=== PATIENT | male | born 1955 | race Caucasian/White ===

== ENCOUNTER 2016-09-07 17:19 | Inpatient (IN) | payer BC, OTHER ==
[~2016-09-07] VITALS: Ht 177.8 cm; Wt 104.4 kg
--- NOTE | 2016-09-07 19:03 | RADRPT ---
PROCEDURE: CT Brain without. CLINICAL INDICATION: Pain, concern for bleed. TECHNIQUE: A CT of the brain was performed on multidetector high-resolution CT scanner utilizing a xial sections from the skull base through the vertex without contrast. The scan was reviewed in sof t tissue brain and high frequency resolution bone algorithm windows. Images were reviewed on a high -resolution PACS workstation. One or more the following does reduction techniques were utilized: Aut omated exposure control, adjustment of the mA/ or kV according to patient's size, or use of iterativ e reconstruction technique. The exam CTDI = 44.27 mGy and the DLP = 720.23 mGy-cm. COMPARISON: None available. FINDINGS: The ventricles and sulci are mildly prominent indicative of volume loss. There is no intracranial h emorrhage, mass effect or midline shift. No abnormal intra-axial or extra-axial fluid collections a re seen. The awad/white matter differentiation is preserved. There are minimal scattered foci of hypoattenuation in the white matter, which are nonspecific in et iology but likely reflect chronic small vessel ischemic changes. There are minimal intracranial vas cular calcifications consistent with atherosclerosis. The visualized paranasal sinuses are essential ly clear. IMPRESSION: 1. No acute intracranial hemorrhage, transcortical infarction or mass effect. 2. Minimal intracranial atherosclerosis and chronic small vessel ischemic changes. 3. Mild generalized cerebral volume loss. RPTAT: HH .Josh Merritt MD, MD Date Time Electronically viewed and signed by .Josh Merritt MD, MD on 09/07/2016 19:03 .N/
--- NOTE | 2016-09-07 19:05 | RADRPT ---
PROCEDURE: XR Chest. CLINICAL INDICATION: Abdominal pain. TECHNIQUE: Single frontal chest x-ray. COMPARISON: None available. FINDINGS: The cardiomediastinal silhouette is unremarkable. No pneumothorax, pleural effusion or consolidation is seen. No acute osseous abnormality is noted. IMPRESSION: 1. No acute cardiopulmonary abnormality. RPTAT: HH .Josh Merritt MD, MD Date Time Electronically viewed and signed by .Josh Merritt MD, on 09/07/2016 19:04 .N/
[2016-09-07 19:16] LABS: ADD SCAN DIFF NO
[2016-09-07 19:18] LABS: BASOPHIL # 0.1 10^3/ul (0.0-0.1); BASOPHILS % 0.6 % (0.0-2.0); EOSINOPHILS # 0.1 10^3/ul (0.0-0.5); EOSINOPHILS % 1.3 % (0.0-7.0); HEMATOCRIT 50.1 % (42.0-52.0); HEMOGLOBIN 17.5 g/dl (14.0-18.0); LYMPHOCYTES % 26.4 % (15.0-51.0); MEAN CORPUSCULAR HEMOGLOBIN 29.6 pg (29.0-33.0); MEAN CORPUSCULAR HGB CONC 34.9 g/dl (32.0-37.0); MEAN CORPUSCULAR VOLUME 84.6 fl (82.0-101.0); MEAN PLATELET VOLUME 9.5 fl (7.4-10.4); MONOCYTE # 0.6 10^3/ul (0.3-0.9); MONOCYTES % 5.3 % (0.0-11.0); NEUTROPHIL # 7.4 10^3/ul (1.6-7.5); NEUTROPHILS % 65.9 % (39.0-77.0); PLATELET COUNT 296 10^3/UL (140-415); RED BLOOD COUNT 5.92 10^6/ul (4.70-6.10); RED CELL DISTRIBUTION WIDTH 12.1 % (11.5-14.5); WHITE BLOOD COUNT 11.2 10^3/ul (4.8-10.8)
[2016-09-07 19:19] LABS: ADD UMIC YES; URINE BILIRUBIN (Dip) NEGATIVE (NEGATIVE); URINE BLOOD (Dip) 2+ (NEGATIVE); URINE COLOR LT. YELLOW (YELLOW); URINE GLUCOSE (Dip) >=1000 % (NEGATIVE); URINE KETONES (Dip) NEGATIVE (NEGATIVE); URINE LEUKOCYTE ESTERASE (Dip) NEGATIVE (NEGATIVE); URINE NITRITE (Dip) NEGATIVE (NEGATIVE); URINE TOTAL PROTEIN (Dip) NEGATIVE (NEGATIVE); URINE UROBILINOGEN (Dip) 0.2 E.U./dL (0.1-1.0)
[2016-09-07 19:26] LABS: ALBUMIN 4.8 g/dl (3.3-4.9); CHLORIDE 100 mmol/L (97-110); INR 0.98; SODIUM 140 mmol/L (135-144)
[2016-09-07 19:27] LABS: POTASSIUM 4.4 mmol/L (3.5-5.1)
[2016-09-07 19:28] LABS: CREATININE 0.77 mg/dl (0.61-1.24)
[2016-09-07 19:29] LABS: ALANINE AMINOTRANSFERASE 30 IU/L (13-69); ALKALINE PHOSPHATASE 98 IU/L (42-121); ANION GAP 18 (8-16); ASPARTATE AMINO TRANSFERASE 23 IU/L (15-46); BILIRUBIN,INDIRECT 0.4 mg/dl (0-1.1); BILIRUBIN,TOTAL 0.4 mg/dl (0.2-1.3); BLOOD UREA NITROGEN 16 mg/dl (7-20); CALCIUM 10.3 mg/dl (8.4-10.2); CARBON DIOXIDE 26 mmol/L (21-31); GLUCOSE 242 mg/dl (70-220)
[2016-09-07 19:32] LABS: BACTERIA,URINE FEW
[2016-09-07 19:45] LABS: TROPONIN-I < 0.012 ng/ml (0.00-0.12)
[2016-09-07] MEDS ORDERED: IOHEXOL 100 ML ONE (20:04)
[2016-09-07] MEDS ORDERED: SOD CHLORIDE 0.9% 100 ML ONE (20:04)
--- NOTE | 2016-09-07 20:34 | RADRPT ---
PROCEDURE: CTA Neck. CLINICAL INDICATION: aneurysm, dissection, neurologic deficit TECHNIQUE: The study was performed utilizing a multidetector CT scanner. Thin cut axial sections w ere obtained through the neck with the use of 100 cc of Isovue 370 nonionic intravenous contrast mat erial. Coronal and sagittal maximal intensity projection reformations were obtained. Additional 3D volumetric renderings were created. The images were reviewed on a PACS workstation. The total CTDI vol is 21/23 mGy and the DLP is 795 mGy-cm. One or more of the following dose reduction techniques w ere used: Automated exposure control, Adjustment of the mA and/or kV according to patient size, and/ or use of iterative reconstruction technique. COMPARISON: No prior studies are available for comparison. FINDINGS: Narrowest luminal diameter of the right proximal internal carotid artery just beyond the carotid bul b measures 2.7 mm with distal luminal diameter measuring 3.5 mm. This is compatible with the 23% st enosis by NASCET criteria. No significant stenosis or vessel dissection of the bilateral common obrien tid, left cervical internal carotid or bilateral vertebral arteries. 15 mm nodule in the right trach eoesophageal groove at the level of the thoracic inlet. Reversal of the cervical lordosis with degen erative changes of the cervical spine. IMPRESSION: No evidence of carotid or vertebral arterial aneurysm or dissection. Mild stenosis of the proximal right internal carotid artery by NASCET criteria. 15 mm nodule in the right tracheoesophageal groove at the level of the thoracic inlet could represen t a lymph node or parathyroid adenoma. NASCET CAROTID STENOSIS CRITERIA (distal normal appearing ICA as denominator for measurement): 0%-no ne, 1-49%-mild, 50-70%-moderate, 70-89%-severe, 90-99%-critical. . RPTAT: AA .Saúl Martinez MD, Date Time Electronically viewed and signed by .Saúl Martinez MD, MD on 09/07/2016 20:34 .T/
--- NOTE | 2016-09-07 21:08 | ERA ---
ER Documentation Chief Complaint Date/Time DATE: 09/07/16 TIME: 21:00 Chief Complaint double vision , rt side facial and rt hand numbness since HPI 60-year-old man presents with 4 days of double vision and paresthesias to the right side of the face and right hand although he denies weakness or headache. Patient denies anxiety or previous similar symptoms. He has had no chest pain or shortness of breath, no fevers or chills, no head trauma, no vomiting or diarrhea. Patient denies significant past medical history. He was referred here by his PMD for further evaluation and admission. ROS All systems reviewed and are negative except as per history of present illness. Medications Home Meds No Active Prescriptions or Reported Meds Allergies Allergies: Coded Allergies: No Known Allergy (Unverified , 09/07/16) PMhx/Soc None Medical and Surgical Hx: pt denies Medical Hx, pt denies Surgical Hx History of Surgery: Yes (ADENOIDECTOMY) Anesthesia Reaction: No Hx Neurological Disorder: No Hx Respiratory Disorders: No Hx Cardiac Disorders: No Hx Psychiatric Problems: No Hx Miscellaneous Medical Probl: No Hx Alcohol Use: No Hx Substance Use: No Hx Tobacco Use: No Smoking Status: Never smoker FmHx Family History: No diabetes Physical Exam Vitals Vital Signs Date Time Temp Pulse Resp B/P Pulse Ox O2 Delivery O2 Flow Rate FiO2 09/07/16 20:10 93 17 146/95 96 Room Air 09/07/16 17:37 98.1 88 16 159/85 99 Physical Exam GENERAL: Well-developed, well-nourished, well-hydrated, in no apparent distress , looks nontoxic in appearance HEENT: Moist mucous membranes, pink conjunctiva, no cervical spine tenderness or step-off deformities, no goiter, no jaundice or icterus, extraocular movements intact without pain. No submandibular induration, and no pharyngeal erythema NEURO: Alert and oriented 3, cranial nerves II through XII intact bilaterally, patient has a left ptosis, strength is 5 out of 5 bilaterally in upper lower extremities, no pronator drift, no gait ataxia, sensation equal and bilateral distally CARDIAC: Regular rate and rhythm, no murmurs rubs or gallops LUNGS: Clear bilaterally no wheezing crackles or stridor ABDOMEN: Soft nontender, no guarding, no rigidity, no rebound, no psoas sign no obturator sign. Normoactive bowel sounds SKIN: Warm and dry to touch, no abrasions, contusions, or hematomas, no lacerations, no ecchymosis, no target lesions, and without ulcers EXTREMITIES: No clubbing cyanosis or edema, calves are bilaterally symmetrical, no Homans sign, no popliteal cord sign. Distal pulses equal and bilateral PSYCH: Normal affect without agitation or irritability Result Diagram: 09/07/16189909/07/161899 Results 24 hrs Laboratory Tests Test 09/07/16 19:00 White Blood Count 11.210^3/ul Red Blood Count 5.9210^6/ul Hemoglobin 17.5g/dl Hematocrit 50.1% Mean Corpuscular Volume 84.6fl Mean Corpuscular Hemoglobin 29.6pg Mean Corpuscular Hemoglobin Concent 34.9g/dl Red Cell Distribution Width 12.1% Platelet Count 54861^3/UL Mean Platelet Volume 9.5fl Neutrophils % 65.9% Lymphocytes % 26.4% Monocytes % 5.3% Eosinophils % 1.3% Basophils % 0.6% Nucleated Red Blood Cells % 0.0/100WBC Neutrophils # 7.410^3/ul Lymphocytes # 3.010^3/ul Monocytes # 0.610^3/ul Eosinophils # 0.110^3/ul Basophils # 0.110^3/ul Nucleated Red Blood Cells # 0.010^3/ul Prothrombin Time 13.0Sec Prothrombin Time Ratio 1.0 INR International Normalized Ratio 0.98 Urine Color LT. YELLOW Urine Clarity CLEAR Urine pH 5.5 Urine Specific [place] 1.020 Urine Ketones NEGATIVE Urine Nitrite NEGATIVE Urine Bilirubin NEGATIVE Urine Urobilinogen 0.2 E.U./dL Urine Leukocyte Esterase NEGATIVE Urine Microscopic RBC 10-25/HPF Urine Microscopic WBC 0-2/HPF Urine Epithelial Cells OCCASIONAL Urine Bacteria FEW Urine Hemoglobin 2+ Urine Glucose >=1000% Urine Total Protein NEGATIVE Sodium Level 140mmol/L Potassium Level 4.4mmol/L Chloride Level 100mmol/L Carbon Dioxide Level 26mmol/L Anion Gap 18 Blood Urea Nitrogen 16mg/dl Creatinine 0.77mg/dl Glucose Level 242mg/dl Calcium Level 10.3mg/dl Total Bilirubin 0.4mg/dl Direct Bilirubin 0.00mg/dl Indirect Bilirubin 0.4mg/dl Aspartate Amino Transf (AST/SGOT) 23IU/L Alanine Aminotransferase (ALT/SGPT) 30IU/L Alkaline Phosphatase 98IU/L Troponin I < 0.012ng/ml Total Protein 8.0g/dl Albumin 4.8g/dl Globulin 3.20g/dl Albumin/Globulin Ratio 1.50 Lipase 106U/L Current Medications Medications (Trade) Dose Ordered Sig/[place] Route PRN Reason Start Time Stop Time Status Last Admin Dose Admin IV Flush 10 ml 10 ml STK-MED ONCE .ROUTE 09/07/16 20:04 09/07/16 20:05 DC Sodium Chloride 100 ml @ ud STK-MED ONCE .ROUTE 09/07/16 20:04 09/07/16 20:05 DC Iohexol (Omnipaque) 100 ml @ ud STK-MED ONCE .ROUTE 09/07/16 20:04 09/07/16 20:05 DC Procedures/MDM IV line was established patient was placed on clinical research monitor rhythm strip revealed a sinus rhythm at about 90 bpm with upright P and T waves. Patient was afebrile. Chest X-ray 1V Interpreted by me: Soft Tissue: No acute abnormalities Bones: No acute abnormalities Mediastinum/Cardiac Silhouette/Lungs: No acute abnormalities CT scan of the brain was performed that was negative for acute bleed mass or shift. Please refer to radiologist dictation for full report. Patient initially received 1 L normal saline intravenously. Neurologic exam was fairly unremarkable although patient does have a left ptosis which is fairly obvious and he states that this is new for him. Given this finding carotid artery dissection versus aneurysm is a possibility so CTA of the neck has been performed there is no acute carotid artery injury. Please refer to radiologist dictation for full report. Patient also received a second liter of normal saline intravenously and aspirin 324 mg p.o. for neuro protective measures. CBC was unremarkable, electrolytes normal, liver function tests normal, troponin negative. EKG performed, read by me: 99 bpm, normal sinus rhythm, normal axis, no acute ST segment changes, narrow QRS complex, with good R-wave progression in precordial leads. Urine analysis was unremarkable. Patient admitted to telemetry setting, I did speak to Dr. Starks who is covering for Dr. Massey, although she stated he would be an later this evening to round on the patient. Departure Diagnosis: Primary Impression: Double vision Additional Impressions: Ptosis Qualified Code: H02.402 - Ptosis, left Paresthesias Condition: JOHANNA Alexander MD Sep 07, 2016 21:08
[2016-09-07] MEDS ORDERED: ASPIRIN 81 MG TAB PO ONE (21:30)
[2016-09-07] MEDS ORDERED: SOD CHLORIDE 0.9% 1,000 ML IV ONE (21:30)
[2016-09-08] VITALS (7 sets, daily range): BP systolic 129–159; BP diastolic 83–89; PULSE 82–89; RESP 18–20; Ht 177.8 cm; Wt 104.4 kg
[2016-09-08] MEDS ORDERED: ACETAMINOPHEN 325 MG TAB PO PRN (13:30)
[2016-09-08] MEDS ORDERED: ZOLPIDEM 5 MG TAB PO PRN (13:30)
[2016-09-08] MEDS ORDERED: MAGNESIUM HYDROXIDE 30ML CUP PO PRN (13:30)
--- NOTE | 2016-09-08 15:17 | RADRPT ---
PROCEDURE: XR Chest. CLINICAL INDICATION: Shortness of breath. TECHNIQUE: Single frontal view. COMPARISON: 09/07/2016. FINDINGS: The lungs are clear. The heart size is normal. There is no pleural effusion. There is no pneumothorax. IMPRESSION: 1. Normal chest radiograph. 2. No change from 09/07/2016. RPTAT: QQ .Roldan Cardenas MD, MD Date Time Electronically viewed and signed by .Roldan Cardenas MD, MD on 09/08/2016 15:17 .R/
[2016-09-08 16:20] LABS: ADD SCAN DIFF NO
[2016-09-08 16:27] LABS: BASOPHIL # 0.1 10^3/ul (0.0-0.1); BASOPHILS % 0.5 % (0.0-2.0); EOSINOPHILS # 0.2 10^3/ul (0.0-0.5); EOSINOPHILS % 1.6 % (0.0-7.0); HEMATOCRIT 47.4 % (42.0-52.0); HEMOGLOBIN 16.9 g/dl (14.0-18.0); LYMPHOCYTES # 2.4 10^3/ul (0.8-2.9); LYMPHOCYTES % 24.4 % (15.0-51.0); MEAN CORPUSCULAR HEMOGLOBIN 29.8 pg (29.0-33.0); MEAN CORPUSCULAR HGB CONC 35.7 g/dl (32.0-37.0); MEAN CORPUSCULAR VOLUME 83.6 fl (82.0-101.0); MEAN PLATELET VOLUME 9.7 fl (7.4-10.4); MONOCYTE # 0.6 10^3/ul (0.3-0.9); MONOCYTES % 5.6 % (0.0-11.0); NEUTROPHIL # 6.7 10^3/ul (1.6-7.5); NEUTROPHILS % 67.4 % (39.0-77.0); PLATELET COUNT 261 10^3/UL (140-415); RED BLOOD COUNT 5.67 10^6/ul (4.70-6.10); RED CELL DISTRIBUTION WIDTH 11.9 % (11.5-14.5)
[2016-09-08 16:40] LABS: POTASSIUM 4.1 mmol/L (3.5-5.1)
[2016-09-08 16:42] LABS: ALBUMIN/GLOBULIN RATIO 1.53; BILIRUBIN,INDIRECT 0.5 mg/dl (0-1.1); BILIRUBIN,TOTAL 0.5 mg/dl (0.2-1.3); CREATININE 0.63 mg/dl (0.61-1.24); TOTAL PROTEIN 6.6 g/dl (6.1-8.1)
[2016-09-08 16:43] LABS: CALCIUM 9.7 mg/dl (8.4-10.2)
[2016-09-08 16:44] LABS: CHOL/HDL RATIO 5.8 RATIO
[2016-09-08 17:14] LABS: PROSTATE SPECIFIC ANTIGEN 0.4 ng/ml (0.0-4.0); THYROID STIMULATING HORMONE 3.08 MIU/L (0.465-4.680)
[2016-09-08 17:34] LABS: ADD UMIC YES; URINE BILIRUBIN (Dip) NEGATIVE (NEGATIVE); URINE BLOOD (Dip) TRACE (NEGATIVE); URINE COLOR LT. YELLOW (YELLOW); URINE KETONES (Dip) TRACE (NEGATIVE); URINE LEUKOCYTE ESTERASE (Dip) NEGATIVE (NEGATIVE); URINE NITRITE (Dip) NEGATIVE (NEGATIVE); URINE TOTAL PROTEIN (Dip) NEGATIVE (NEGATIVE); URINE UROBILINOGEN (Dip) 0.2 E.U./dL (0.1-1.0)
[2016-09-08 17:43] LABS: SQUAMOUS EPITHELIAL CELL,UR RARE
--- NOTE | 2016-09-08 17:57 | RADRPT ---
PROCEDURE: US carotid arteries. CLINICAL INDICATION: Dizziness. Diplopia. TECHNIQUE: Multiple sonographic images of the carotid arteries and vertebral arteries were obtaine d utilizing awad scale, duplex, and color-flow imaging. The images were reviewed on a PACS workstati on. COMPARISON: No prior studies are available for comparison. FINDINGS: Evaluation of the right carotid bifurcation region reveals mild atherosclerotic disease. Evaluation of the left carotid bifurcation region reveals mild atherosclerotic disease. There is antegrade flow within the vertebral arteries bilaterally. RIGHT CAROTID MEASUREMENTS: Common Carotid [id number] (cm/sec) Internal Carotid Artery 81 (cm/sec) External Carotid Artery 87 (cm/sec) Vertebral Artery 46 (cm/sec) Internal Carotid/Common Carotid1.1 LEFT CAROTID MEASUREMENTS: Common Carotid Mmzosz53 (cm/sec) Internal Carotid Artery 58 (cm/sec) External Carotid Artery 75 (cm/sec) Vertebral Artery 49 (cm/sec) Internal Carotid/Common Carotid0.7 Validated velocity measurements with angiographic measurements. Velocity criteria are extrapolated f rom diameter data as defined by the Society of Radiologists in Ultrasound Consensus Conference. Radi ology 2003; 229;340-346. This study does indirectly reference the measurement of the distal ICA klaudia meter as the denominator for stenosis measurement. IMPRESSION: 1. Less than 50% stenosis bilaterally in the internal carotid arteries. 2. Normal antegrade flow in the vertebral arteries bilaterally. RPTAT: QQ SRU Consensus Conference Criteria for the Diagnosis of Carotid Artery Stenosis* Degree of Stenosis, % ICA PSV, cm/sec Plaque Estimate, % ICA/CCA PSV Ratio Normal <125 None <2.0 <50 <125 <50 <2.0 50 69 125-230 >50 2.0-4.0 >70 but less than near occlusion >230 >50 <4.0 Near occlusion High, low, or undetectable Visible Variable Total occlusion Undetectable Visible, no detectable lumen Not applicable *Cartoid artery stenosis: awad-scale and Doppler US diagnosis. Society of Radiologists in Ultrasound Consensus Conference. Radiology 2003; 229: 340-346 .Roldan Cardenas MD, Date Time Electronically viewed and signed by .Roldan Cardenas MD, on 09/08/2016 17:57 .R/
[2016-09-08] MEDS: INSULIN ASPART [NOVOLOG] 3 ML PEN SC SCH ×2 (18:11→21:11)
[2016-09-08] MEDS ORDERED: GLUCAGON 1 MG INJ IM PRN (18:30)
[2016-09-08] MEDS ORDERED: GLUCOSE GEL 15 GRAM TUBE BUCCAL PRN (18:30)
[2016-09-08] MEDS ORDERED: GLUCOSE GEL 15 GRAM TUBE PO PRN ×2 (18:30)
[2016-09-08] MEDS ORDERED: DEXTROSE 50% 50 ML SYRINGE IV PRN ×2 (18:30)
--- NOTE | 2016-09-08 19:08 | HP ---
DATE OF ADMISSION: 09/07/2016 CHIEF COMPLAINT: Horizontal diplopia and numbness in the right arm and hand, duration 5 days. HISTORY OF PRESENT ILLNESS: Five days ago this patient at work and suddenly was seeing double. He sees things side by side, not one on top of the other. The patient has never had a similar episode before. No headache, no trauma. The patient also complaining of numbness and pain down his right a rm into his right hand. Because it is felt that this might represent a left-sided cerebral lesion, the patient being admitted at this time for neurological workup. The patient accordingly presents t o [facility] at this time for admission. FAMILY HISTORY: Mother of Alzheimer disease at age 81. Father at age 65 of myocardial in farction and a stroke. The patient has no brothers or sisters. No family history of carcinoma, tub erculosis or diabetes mellitus. SOCIAL HISTORY: The patient does not smoke and drinks alcoholic beverages only moderately. SERIOUS ACCIDENTS: None. SERIOUS ILLNESSES: None. PREVIOUS SURGERIES: None. DRUGS AND MEDICATIONS: None. ALLERGIES: NO KNOWN DRUG ALLERGIES. REVIEW OF SYSTEMS: CARDIOVASCULAR: No history of congenital heart disease, rheumatic fever, valvular heart disease, ar rhythmia, coronary insufficiency, myocardial infarction or angina pectoris. RESPIRATORY: No history of asthma, tuberculosis or pneumonia. GASTROINTESTINAL: No history of peptic ulcer disease, cholecystitis, hepatitis, jaundice, pancreati tis, ileitis, colitis, hematemesis or melena. MUSCULOSKELETAL: No history of fracture. No history of arthritis. NEUROLOGICAL: No history of epilepsy, convulsion or CVA. No history of emotional disorder. GENITOURINARY: No history of cystitis, glomerulonephritis, pyelonephritis or other genital tract di sorder. PHYSICAL EXAMINATION: GENERAL: The patient is a well-developed white male who does not appear acutely or chronically ill. VITAL SIGNS: Blood pressure 137/84, pulse 80, respirations 16, temperature 98.6. SKIN: No evidence of dermatitis. NECK: Supple. The thyroid is not palpable. HEAD: Symmetrical with no evidence of injury or deformity. EYES: PERRLA, EOM normal. Disks flat. Peripheral and forward vision grossly intact. EARS, NOSE AND THROAT: Clear. HEART: PMI left 5th interspace, left midclavicular line. No murmurs, no thrills, no bruits. A2 is greater than P2. No distention of jugular veins. No ankle edema. Hepatojugular reflux is not pre sent. CHEST: Clear to A and P. ABDOMEN: Liver, kidneys, spleen are not palpable. Bowel sounds are normal. There are no intra-abd ominal masses or bruits. GENITOURINARY: Normal external male genitalia. RECTAL: Deferred because of uncertain cardiac status. MUSCULOSKELETAL: No evidence of deformity or injury to the musculoskeletal system. NEUROLOGICAL: DTRs normal and equal bilaterally. Plantars are flexor. No pathological reflexes ar e present. Mfvvkx-sw-jntv test is normal. No pronator drift. Romberg test is negative and tandem gait is normal. PERIPHERAL VASCULAR: No carotid or subclavian artery bruits. Femoral and dorsal pedal pulses are n ormal and equal bilaterally. Posterior tibial pulses are absent bilaterally. IMPRESSION: Horizontal diplopia, numbness in the right arm, possible left cerebellar lesion. Rule out vascular lesion, rule out cerebrovascular accident, rule out neoplasm. Dictated By: BRI BLANCAS/BENJAMIN Conf#: [id number] DID#: [id number]
--- NOTE | 2016-09-08 23:19 | SP ---
DATE OF PROCEDURE: INDICATION: A 60-year-old gentleman with double vision and right-sided numbness. DESCRIPTION OF PROCEDURE: Routine EEG was recorded digitally. Upzdo-bo-shwiz and cwquz-br-hto darrius ages were recorded and reviewed. All impedances were measured and recorded. Cap electrodes were pl aced in accordance with International 10-20 system of electrode placement. FINDINGS: Symmetrically distributed background activity of low amplitude ranging in frequency betwe en 8 to 10 cycles per second was seen in the awake state. When the patient gets drowsy, background rhythm gets slightly less organized, partially replaced or intermixes with slower waves of 4 to 6 cy cles per second. No epileptiform transients were seen. No signs of ongoing electrographic seizures or lateralized slowing. Hyperventilation and photic stimulation produces no epileptiform activity. IMPRESSION: Normal study. Please correlate clinically. Dictated By: SHORTY ZepedaV/BENJAMIN Conf#: [id number] DID#: [id number] CC: BRI WEBB MD;*EndCC*
[2016-09-09] VITALS (15 sets, daily range): BP systolic 128–154; BP diastolic 78–99; PULSE 65–97; RESP 16–20
--- NOTE | 2016-09-09 00:12 | PN ---
DATE: 09/08/2016 SUBJECTIVE: The patient is off the lassiter getting an MRI. I spoke to the patient by phone earlier to day. He stated he still has double horizontal vision. He also still had numbness in his right hand and fingers. OBJECTIVE: VITAL SIGNS: Afebrile, blood pressure is 159/68, pulse is 90. LABORATORY DATA: White blood cell count is 10,000; hemoglobin is 16.9, hematocrit is 47.4%. Sodium is 136, potassium is 4.1, chloride is 106, carbon dioxide is 25, BUN is 14, creatinine 0.63, glucos e is 192, calcium is 9.7. Triglycerides are elevated at 479, cholesterol was elevated at 204. Thyr oid test is normal. Urine glucose is 0.5%. IMAGING: Carotid Doppler less than 50% stenosis bilaterally in the internal carotid arteries. Norm al antegrade flow in the vertebral arteries bilaterally. Chest x-ray revealed normal chest radiogra ph. No change from the admission one on 09/07/2016. CT angiogram of the neck reveals no evidence o f carotid or vertebral artery aneurysm rupture or dissection, mild stenosis of proximal right consulting intern al carotid artery, a 15 mm nodule in the right tracheoesophageal groove at the level of the thoracic inlet, which could represent a lymph node or a parathyroid adenoma. CAT scan of the brain revealed no acute intracranial hemorrhage, transcortical infarction, or mass effect. Minimal intracranial a therosclerosis and chronic small vessel ischemic changes. Mild generalized cerebral volume loss. Dictated By: BRI BLANCAS/BNEJAMIN Conf#: [id number] DID#: [id number]
[2016-09-09] MEDS ORDERED: ACCU-CHEK XX SCH (02:00)
--- NOTE | 2016-09-09 04:48 | RADRPT ---
PROCEDURE: MR Brain with and without contrast. CLINICAL INDICATION: Diplopia. Suspected stroke. TECHNIQUE: Sagittal and axial T1 weighted, axial diffusion weighted, T2, and axial gradient and ax ial and coronal FLAIR imaging before contrast. Multiplanar T1-weighted imaging after injection of 1 0 cc of intravenous Magnevist. COMPARISON: None. FINDINGS: No high signal abnormalities are seen on the diffusion-weighted images to suggest the presence of ac la posta ischemia or recent infarct. There is no evidence of intracranial hemorrhage, mass effect, or mi dline shift. No extra-axial fluid collections are seen. Minimal cortical atrophy is seen without lavinia dence of chronic microvascular ischemic change. In the central and left mid brain, there is a curvi linear area of abnormal increased signal seen on FLAIR and T2-weighted images which is slightly serp iginous in configuration and measures 10 x 5 mm. No definite associated enhancement is seen. The l esion is faintly low in signal on postcontrast T1-weighted images. There is not definite associated restricted diffusion. Some T2 shine through is seen. No adjacent edema. No other lesions are seen. The signal intensity is otherwise normal throughout the cerebrum, brainstem, and cerebellum. There i s no other evidence to suggest etiology such as demyelinating disease. No hypointense signal abnormalities are seen on the GRE images to suggest the presence of blood degradation products. Nor mal flow voids are visible in the proximal intracranial arteries and dural sinuses, indicating paten cy. The post contrast images show no abnormal parenchymal, leptomeningeal, or dural enhancement. The visualized paranasal sinuses are grossly clear. The globes appear symmetric and intact. No abnorma lity of the extra ocular musculature or optic nerves is seen. The optic chiasm is unremarkable in a ppearance. IMPRESSION: Serpiginous area of abnormal FLAIR and T2 signal in the midline and left aspect of the mid brain wit hout associated restricted diffusion, hemorrhage, or enhancement. The appearance is nonspecific but may be due to prior infarct. Focal area of demyelination is possible. The lesion is not in the ex act location expected for intranuclear ophthalmoplegia. Low grade neoplasm is unlikely. 2 to 3-darrius h follow-up MRI with without contrast is recommended. RPTAT: HLBE Alix Olson, Physician Date Time Electronically viewed and signed by Alix Olson, Physician on 09/09/2016 04:48 LE/
[2016-09-09] MEDS: metFORMIN 500 MG TAB PO SCH ×2 (08:02→17:16)
[2016-09-09] MEDS: INSULIN ASPART [NOVOLOG] 3 ML PEN SC SCH ×4 (08:05→20:58)
--- NOTE | 2016-09-09 12:56 | CONS ---
Date/Time of Note Date/Time of Note DATE: 09/09/16 TIME: 12:39 Assessment/Plan Assessment/Plan Chief Complaint/Hosp Course 60 year old male with uncontrolled diabetes, HTN, morbid obesity presenting with diplopia and right sided sensory symptoms. 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 suspect his uncontrolled diabetes is a contributing factor to current presentation. Recommendations: maintain normotensive blood pressure HBA1C elevated 10.6% met with peer educator to achieve more optimal control advised exercise and dietary modification -initiate aspirin 81 mg daily for secondary stroke prevention -advised to abstain from driving until diplopia resolves and he has an outpatient consultation with installer helper -discharge planning can follow up with Dr. Mcmullen as outpatient for neurology follow up will also suggest a repeat MRI Brain with and without contrast in 1-2 months for surveillance Problems: Consultation Date/Type/Reason Admit Date/Time Sep 07, 2016 at 21:10 Date of Consultation: Sep 09, 2016 Type of Consultation: Neurology Reason for Consultation evaluation for horizontal diplopia Hx of Present Illness 60 year old male with morbid obesity, untreated hypertension, uncontrolled DM with HBA1C (10.6%) presenting with complaints of double vision ongoing since last week. He went away on vacation last week, admits to poor eating habits while away and he returns on awoke with double vision in both eyes, resolves upon closing either eye. He denies any headaches, no loss of vision, no speech disturbances, admits to mild numbness sensation on right side of his face also with mild numbness in right arm and leg. CTA shows no evidence of dissection, mild stenosis of proximal right ICA. 15 mm nodule in right tracheoesophageal groove lymph node vs parathyroid adenoma MRI Brain showed FLAIR signal abnormality left aspect midbrain likely previous infarct, no acute infarction follow up MRI was recommended to rule out possibility of demyelinating process/ underlying lesion double vision Past Medical History as per HPI Social History Smoking Status: Never smoker Exam/Review of Systems Vital Signs Vitals Vital Signs Date Time Temp Pulse Resp B/P Pulse Ox O2 Delivery O2 Flow Rate FiO2 09/09/16 11:47 98.3 90 20 154/99 95 Room Air Intake and Output 09/08/16 09/08/16 09/09/16 15:00 23:00 07:00 Intake Total 250 ml 120 ml Balance 250 ml 120 ml Exam awake and alert morbid obesity oriented to self, hospital, date no aphasia follows all commands well CN: HAYDEN, VFF slight ptosis of left eye lid, slight NLF flattening sensory intact, palate upgoing uvula midline scm/trap intact tongue midline Motor: Bilateral UE and LE 5/5 Sensory intact throughout to LT Reflexes trace UE absent KJ Coordination no ataxia Gait : stable no ataxia Results Result Diagram: 09/08/16 1605 09/08/16 1605 Results 24 hrs Laboratory Tests Test 09/08/16 14:00 09/08/16 16:05 09/08/16 21:01 09/09/16 02:08 Urine Color LT. YELLOW Urine Clarity CLEAR Urine pH 7.0 Urine Specific [place] 1.010 Urine Ketones TRACE Urine Nitrite NEGATIVE Urine Bilirubin NEGATIVE Urine Urobilinogen 0.2 E.U./dL Urine Leukocyte Esterase NEGATIVE Urine Microscopic RBC 2-5 Urine Microscopic WBC 0-2 Urine Squamous Epithelial Cells RARE Urine Hemoglobin TRACE Urine Glucose 0.5% H Urine Total Protein NEGATIVE White Blood Count 10.0 Red Blood Count 5.67 Hemoglobin 16.9 Hematocrit 47.4 Mean Corpuscular Volume 83.6 Mean Corpuscular Hemoglobin 29.8 Mean Corpuscular Hemoglobin Concent 35.7 Red Cell Distribution Width 11.9 Platelet Count 261 Mean Platelet Volume 9.7 Neutrophils % 67.4 Lymphocytes % 24.4 Monocytes % 5.6 Eosinophils % 1.6 Basophils % 0.5 Nucleated Red Blood Cells % 0.0 Neutrophils # 6.7 Lymphocytes # 2.4 Monocytes # 0.6 Eosinophils # 0.2 Basophils # 0.1 Nucleated Red Blood Cells # 0.0 Erythrocyte Sedimentation Rate 2 Sodium Level 136 Potassium Level 4.1 Chloride Level 106 Carbon Dioxide Level 25 Anion Gap 9 # Blood Urea Nitrogen 14 Creatinine 0.63 Glucose Level 192 Calcium Level 9.7 Total Bilirubin 0.5 Direct Bilirubin 0.00 Indirect Bilirubin 0.5 Aspartate Amino Transf (AST/SGOT) 23 Alanine Aminotransferase (ALT/SGPT) 38 Alkaline Phosphatase 98 Total Protein 6.6 # Albumin 4.0 Globulin 2.60 Albumin/Globulin Ratio 1.53 Triglycerides Level 479 H Cholesterol Level 204 H LDL Cholesterol, Calculated 73 HDL Cholesterol 35 Cholesterol/HDL Ratio 5.8 Prostate Specific Antigen 0.4 Thyroid Stimulating Hormone (TSH) 3.080 Bedside Glucose 185 209 Test 09/09/16 07:59 09/09/16 11:57 Bedside Glucose 230 H 244 H Medications Medications Current Medications Magnesium Hydroxide (Milk Of Mag) 30 ml DAILY PRN PO CONSTIPATION; Start at 13:30 Acetaminophen (Tylenol Tab) 650 mg Q4H PRN PO PAIN AND OR ELEVATED TEMP; Start 09/08/16 at 13:30 Zolpidem Tartrate (Ambien) 5 mg HS PRN PO INSOMNIA; Start 09/08/16 at 13:30 Diagnostic Test (Pha) (Accu-Chek) 1 ea 02 XX ; Start 09/09/16 at 02:00 Miscellaneous Information 1 ea NOTE XX ; Start 09/08/16 at 18:30 Glucose (Glutose) 15 gm Q15M PRN PO DECREASED GLUCOSE; Start 09/08/16 at 18:30 Glucose (Glutose) 22.5 gm Q15M PRN PO DECREASED GLUCOSE; Start 09/08/16 at 18:30 Dextrose (D50w Syringe) 25 ml Q15M PRN IV DECREASED GLUCOSE; Start 09/08/16 at 18:30 Dextrose (D50w Syringe) 50 ml Q15M PRN IV DECREASED GLUCOSE; Start 09/08/16 at 18:30 Glucagon (Glucagen) 1 mg Q15M PRN IM DECREASED GLUCOSE; Start 09/08/16 at 18:30 Glucose (Glutose) 15 gm Q15M PRN BUCCAL DECREASED GLUCOSE; Start 09/08/16 at 18: 30 RYAN GIBSON MD Sep 09, 2016 12:49
[2016-09-09] MEDS ORDERED: ASPIRIN (EC) 81 MG TAB PO ONE (13:00)
[2016-09-10 01:04] VITALS: PULSE 85
[2016-09-10] MEDS ORDERED: METF500T4 PO (01:12)
[2016-09-10] MEDS ORDERED: ASPI-664 PO (01:15)
--- NOTE | 2016-09-10 03:12 | PN ---
DATE: 09/09/2016 OBJECTIVE: GENERAL: The patient is awake and alert. He feels well. The patient has been found on this admiss ion to have diabetes with a sugar in excess of 200. The patient has been placed on a diabetic diet and Metformin 500 mg twice a day. He has also been seen by the hospital educator and the neurologis t saw this patient. They feel like his double vision may be due to neuritis of the nurse controllin g the ocular muscles. He also has evidence of an old left CVA but this is old and probably is not r elated at all to his present double vision. HEART: Normal sinus rhythm. LUNGS: Clear to A and P. ABDOMEN: Liver, kidneys and spleen not palpable. Bowel sounds are normal. EYES: PERRLA. EOM normal. Disks flat. Peripheral and forward vision grossly intact; however, the patient still has horizontal diplopia. VITAL SIGNS: Temperature is 98.8, blood pressure is 154/99, pulse is 97 per minute. LABORATORY DATA: Blood sugar is 196. Sodium yesterday was 136, potassium is 4.1, chloride is 106, carbon dioxide was 25, BUN was 14, creatinine was 0.63, glucose is 192, triglycerides of 479 and cho lesterol was 204. The patient is being discharged today on metformin 500 mg twice a day plus a 1500 calorie diabetic d iet. He will also be referred to an company laundry worker on an outpatient basis and will also have anoth er appointment with a neurologist on an outpatient basis. He will be seen by this examiner in 2 day s to make sure that he is following his diabetic regime, and at that time will be given a 1500 calor ie diabetic diet. Dictated By: BRI BLANCAS/BENJAMIN Conf#: [id number] DID#: [id number]
--- NOTE | 2016-09-10 20:51 | RADRPT ---
Echocardiogram Report Patient Name: COLEEN WALLER Gender: Male Date: 1955 Study Date: 09-Sep-2016 Communications Controller: Sydney Jackson [facility] Location: 5567 Ref. Physician: BRI WEBB Quality: Good Procedures: Transthoracic echocardiogram with complete 2D, M-Mode, and doppler examination. Indications: Evaluate Left Ventricular function. 2D/M Mode Doppler Measurement Value Normal Ranges Measurement Value Normal Ranges LVIDd 2D 4.4 3.5 - 5.6 cm AV Peak [place] 1.3 m/sec LVIDs 2D 2.2 2.1 - 4.1 cm AV Peak PG 7.1 mmHg LVPWd 2D 1.1 0.6 - 1.1 cm LVOT Peak [place] 0.8 m/sec IVSd 2D 0.9 0.6 - 1.1 cm LVOT Peak PG 2.9 mmHg AoR Diam 2D 3.0 2.0 - 3.7 cm MV E Peak Davidson 0.5 m/sec EDV 2D 88.0 cm3 MV A Peak [place] 0.6 m/sec ESV 2D 11.2 cm3 MV E/A 0.9 LA Dimen 2D 2.7 2.3 - 4.0 cm MV Decel Time [address] 3 MV E/A 0.9 Findings Left Ventricle: Normal left ventricular systolic function. Normal left ventricular cavity size. Mild concentric left ventricular hypertrophy. Ejection fraction is visually estimated at 65 %. Tissue Doppler/Mitral Doppler indices are consistent with impaired relaxation (Stage I diastolic dysfunction). Right Ventricle: Normal right ventricular size. Normal right ventricular systolic function. Left Atrium: The left atrium is normal in size. Right Atrium: The right atrium is normal in size. Mitral Valve: Normal appearance and function of the mitral valve with trace physiologic regurgitation. Aortic Valve: Normal appearance of the aortic valve. No significant aortic stenosis or insufficiency. Tricuspid Valve: Normal appearance and function of the tricuspid valve with trace physiologic regurgitation. Normal right ventricular systolic pressure. Pulmonic Valve: Normal pulmonic valve appearance. Pericardium: There is an anterior echo free space consistent with epicardial fat pad. Aorta: Normal aortic root. IVC: Normal size and normal respiratory collapse consistent with normal right atrial pressure. Conclusions Normal right ventricular size. Normal right ventricular systolic function. Normal left ventricular systolic function. Normal left ventricular cavity size. Mild concentric left ventricular hypertrophy. Ejection fraction is visually estimated at 65 %. Tissue Doppler/Mitral Doppler indices are consistent with impaired relaxation (Stage I diastolic dysfunction). Normal appearance of the aortic valve. No significant aortic stenosis or insufficiency. Normal appearance and function of the tricuspid valve with trace physiologic regurgitation. Normal right ventricular systolic pressure. Normal size and normal respiratory collapse consistent with normal right atrial pressure. There is an anterior echo free space consistent with epicardial fat pad. No Vegetation, masses, or thrombi seen. Electronically Signed By: Shaun Marley 10-Sep-2016 20:51:01 -0700 Patient Name: COLEEN WALLER Study Date: 09-Sep-2016 [id number]
[2016-09-11 12:57] LABS: MICROALBUMIN 0.9 mg/dL
--- NOTE | 2016-09-11 15:23 | RADRPT ---
Vent Rate: 83 bpm RR Interval: 0 msec NH Interval: 144 msec QRS Duration: 94 msec QT Interval: 352 msec QTC Interval: 413 msec P-R-T [place]: 52 - 65 - 62 degrees Normal sinus rhythm Normal ECG Electronically Signed By: Nato Melchor [id number]
== END 2016-09-10 02:00 | disposition home or self-care (01) | DRG 123 ==
LOC: E/R 17:19 → MS4 21:10
DX: H53.2 Diplopia (principal); E11.65 Type 2 diabetes mellitus with hyperglycemia; I10 Essential (primary) hypertension; H02.409 Unspecified ptosis of unspecified eyelid; R20.0 Anesthesia of skin; E66.01 Morbid (severe) obesity due to excess calories; Z68.33 Body mass index [BMI] 33.0-33.9, adult
CPT/HCPCS: 36415; 70450; 70498; 70552; 71010; 80053; 80061; 81001; 81003; 82043; 82962; 83036; 83690; 84153; 84154; 84443; 84484; 85025; 85610; 85651; 93005; 93306; 93880; 95819; 96360; J1815; J7030; Q9967